=== PATIENT | female | born 1965 | race Caucasian/White ===

== ENCOUNTER → 2018-03-13 10:37 | Outpatient (CLI) | payer OTHER, SELFPAY | PROVIDERS: Family Provider Nurse Practitioner; PCP Nurse Practitioner; Visit Provider Obstetrics & Gynecology | DX: Z12.31 Encounter for screening mammogram for malignant neoplasm of breast (principal) | CPT/HCPCS: 77063; 77067 ==

== ENCOUNTER → 2018-03-20 09:10 | Outpatient (CLI) | payer OTHER, SELFPAY ==
[2018-03-20 10:32] LABS: Hemoglobin A1c 5.3 % (4.2-6.3)
[2018-03-20 10:42] LABS: Progesterone Level 0.13 ng/mL (See Comment)
[2018-03-20 10:44] LABS: Estradiol 20.7 pg/mL; Free T3 3.2 pg/mL (2.18-3.98); T4 Free Direct 0.94 ng/dL (0.76-1.46); Thyroid Stim Hormone (TSH) 4.32 uIU/mL (0.358-3.74)
[2018-03-22 07:57] LABS: DHEA Sulfate 117.5 ug/dL (41.2-243.7)
== END ==
PROVIDERS: Family Provider Nurse Practitioner; PCP Nurse Practitioner; Visit Provider Obstetrics & Gynecology
DX: Z78.0 Asymptomatic menopausal state (principal)
CPT/HCPCS: 36415; 82533; 82627; 82670; 83036; 84144; 84403; 84439; 84443; 84481; 82626

== ENCOUNTER → 2018-05-13 16:48 | Outpatient (CLI) | payer OTHER, SELFPAY ==
[2018-05-13 18:31] LABS: Estradiol 15.9 pg/mL
[2018-05-13 18:39] LABS: Progesterone Level 0.56 ng/mL (See Comment)
[2018-05-21 14:08] LABS: HPV Reflexed? NOT INDICATED
== END ==
PROVIDERS: Visit Provider Obstetrics & Gynecology
DX: Z12.4 Encounter for screening for malignant neoplasm of cervix (principal); N95.1 Menopausal and female climacteric states
CPT/HCPCS: 36415; 82670; 84144; 88175; G0145

== ENCOUNTER → 2018-08-21 08:58 | Outpatient (CLI) | payer OTHER, SELFPAY ==
[2018-08-21 11:49] LABS: Estradiol 18.6 pg/mL
[2018-08-21 11:54] LABS: Progesterone Level 0.65 ng/mL (See Comment)
--- OUTSIDE RECORDS SUMMARY | 2018-10-25 15:59 | XMS RPT_ITS ---
:1965 Author Organization OHIP Care Team Providers Name Role Phone Belkys Monaco Attending Unavailable Belkys Monaco Attending Unavailable [facility] Morgantona, Shayla Primary Care Unavailable Belkys Monaco Attending Unavailable Belkys Monaco Referring Unavailable esa, Shalya Primary Care Unavailable Belkys Monaco Attending Unavailable Arthur, Dr. Lisandra Moncada Attending Unavailable Pipo, Dr. Ford Zuñiga Referring Unavailable FREE, TEXT ENTRY Primary Care Unavailable Arthur, Dr. Lisandra Moncada Attending Unavailable Arthur, Dr. Lisandra Moncada Attending Unavailable Arthur, Dr. Lisandra Moncada Attending Unavailable Arthur, Dr. Lisandra Moncada Attending Unavailable Dr. Ford Foss Referring Unavailable Arthur, Dr. Lisandra Moncada Attending Unavailable Leoa, Lillian Referring Unavailable PROBLEMS PROBLEMS DATE TYPE CONDITION / CODE ATTENDING STATUS SOURCE 08/21/2018 Unknown N93.8 - Other Belkys Monaco specified Community abnormal uterine Hospital and vaginal Repository bleeding / N93.8(ICD-10) 08/21/2018 Unknown N95.1 - Belkys Monaco Menopausal and Counts Include [address] [facility] female Hospital climacteric Repository states / N95.1(ICD-10) 05/13/2018 Unknown Z12.4 - Encounter Belkys Monaco for screening for Counts Include [address] [facility] malignant Hospital neoplasm of Repository cervix / Z12.4(ICD-10) 04/02/2018 Final diagnosis Encntr for Dr. Bhargavi Gibson (discharge) general adult [facility] medical exam w/o [facility] abnormal findings / Z00.00(ICD-10) 04/02/2018 Final diagnosis Dysphonia / Dr. Bhargavi Gibson (discharge) R49.0(ICD-10) [facility] Rep[facility] 04/02/2018 Final diagnosis Paralysis of Dr. Bhargavi Gibson (discharge) vocal cords and [facility] larynx, [place] Repository unspecified / J38.00(ICD-10) PROCEDURES PROCEDURES No Procedure Records FoundRESULTS RESULTS ESTRADIOL Collected: 08/21/2018 Status: F Source: WADE 9:00 AM [facility] REPOSITORY TYPE CODE TESTS RESULT OUT OF RANGE REFERENCE UNITS LAB L3300.1750 pg/mL Normal ESTRADIOL 18.6 Result Comment: NORMAL REFERENCE RANGES FEMALE FOLLICULAR 21.4 - 164.8 pg/mL MID-CYCLE PEAK 49.9 - 367.2 pg/mL LUTEAL 40.2 - 259.0 pg/mL POST-MENOPAUSAL ON MHT <11.0 - 462.1 pg/mL NOT ON MHT <11.0 - 58.3 pg/mL MALE <11.0 - 52.5 pg/mL NOTE: [facility] HAS CONFIRMED THE DRUG FULVETRANT (FASLODEX) MAY CAUSE FALSELY ELEVATED ESTRADIOL RESULTS WHEN USING THIS TEST METHOD. IF PATIENT IS TAKING FULVESTRANT AN ALTERNATIVE METHOD SHOULD BE USED TO DETERMINE ESTRADIOL CONCENTRATION. Performed By: #### L3300.1750 #### [facility] [address] [place], [address] PROGESTERONE LEVEL Collected: 08/21/2018 Status: F Source: WADE 9:00 AM [facility] REPOSITORY TYPE CODE TESTS RESULT OUT OF REFERENCE UNITS RANGE LAB L509.4001 See Comment ng/mL Progesterone Normal 0.65 Result Comment: Progesterone Reference Table: UNITS Female: Follicular 0.15 - 1.40 ng/mL Luteal 3.34 - 25.56 ng/mL Mid-luteal 4.44 - 28.03 ng/mL Postmenopausal 0.0 - 0.73 ng/mL : 1st Trimester 11.22 - 90.00 ng/mL 2nd Trimester 25.55 - 89.40 ng/mL 3rd Trimester 48.40 -422.50 ng/mL Performed By: #### L509.4001 #### [facility] [address] 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 Has had 3 sessions of speech therapy without improvement. Interval History 05/26/2018. Notes that her symptoms are the same today and she is interested in proceeding with left vocal cord injection. PMH: Hypothyroidism (on Synthroid) No swallowing, breathing, laryngospasm, fever, chills, nausea or vomiting. ROS performed. All other systems are reviewed and are negative for complaint except as noted in HPI. 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) Allergies No Known Drug Allergies Recorded By: Mellissa Hathaway; 04/02/2018 4:47:09 PM Current Meds Progesterone 40 % Cream; Therapy: [id number] to Recorded Dispense: 0 Days ; #: Sufficient GM; Refill: 0; PHILLY = N; Record; Last Updated By: Mellissa Hathaway; 04/02/2018 4:47:09 PM Synthroid 25 MCG Oral Tablet; Therapy: [id number] to Recorded Dispense: 0 Days ; #: Sufficient Tablet; Refill: 0; PHILLY = N; Record; Last Updated By: Mellissa Hathaway; 04/02/2018 4:47:09 PM Physical Exam Procedure Procedure: Direct endoscopic vocal cord injection (CPT 55765), unilateral left Diagnosis: Left vocal cord paresis Injection material: Restylane After informed consent, a time out, and appropriate topical Afrin and lidocaine spray to the nares and throat, the channeled endoscope was advanced. The topical lidocaine gargle is applied to the vocal cords. A 25g needle was advanced via the thyrohyoid space an angled to the affected vocal fold. The injection was placed lateral to the vocal ligament and was completed with the following details: .5cc Patient tolerated the procedure well. Post procedure instructions for 24 hours of voice rest, avoidance of cough and clear were discussed. 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 Treatment options had been discussed at her prior visit and decision was made t o proceed with left vocal cord injection with Restylane which was performed today. Patient will call me in 2 weeks with an update. Patient Discussion/Summary Avoid voice usage, throat clearing and cough for 24 hours You may cough up small bits of blood for 24 hours - this is normal. If you cough up clots, or the bleeding does not stop, call our office or [phone] and ask to speak to the ENT resident systems integration analyst. Call me in 2 weeks with an update If your symptoms change, or if you have any further questions or concerns, please call the office so we can see you. For general questions or scheduling issues, call our alumni secretary at [phone] For medical questions or surgery scheduling issues, call [phone] To reach Speech therapy, for appointments or questions, call [phone]. By signing my name below, I, Maru Olivares, attest that this documentation has been prepared under the direction and in the presence of Dr. Gibson. All medical record entries made by the Maru were at my direction and personally dictated by me. I have reviewed the chart and agree that the record accurately reflects my personal performance of the h istory, physical exam, discussion and plan. Attending Note Attendee Role: Resident Attendee discussed patient with Dr. Gibson Attestation: I saw and evaluated the patient. I personally obtained the pizano and critical portions of the history and physical exam or was physically present for pizano and critical portions performed by e attendee. I reviewed the attendee's documentation and discussed the patient with the attendee. I agree with the attendee's medical decision making as documented on the attendee's note. 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 left vocal cord paresis with 3 sessions of speech therapy. PMH: Recently diagnosed Hypothyroidism, currently on Synthroid Interval History 04/02/2018: Speaking voice has been fine. Had three sessions of speech therapy - doesnt feel it helped very much. still with pitch breaks on transitions. Very concerned about how to regain singing through her trans ition, the breaks and the lack of response to speech therapy. No other medical changes. No swallowing, breathing, laryngospasm, fever, chills, nausea or vomiting. ROS performed. All other systems are reviewed and are negative for complaint except as noted in HPI. I personally reviewed the new patient intake form and prior chart notes and this was scanned into the electronic medical record today, 05/26/2018. 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) Allergies No Known Drug Allergies Recorded By: Mellissa Hathaway; 04/02/2018 4:47:09 PM Current Meds Omeprazole 40 MG Oral Capsule Delayed Release; Therapy: [id number] to Recorded Dispense: 0 Days ; #: Sufficient Capsule Delayed Release; Refill: 0; PHILLY = N; Record; Last Updated By: Mellissa Hathaway; 04/02/2018 4:47:09 PM Progesterone 40 % Cream; Therapy: [id number] to Recorded Dispense: 0 Days ; #: Sufficient GM; Refill: 0; PHILLY = N; Record; Last Updated By: Mellissa Hathaway; 04/02/2018 4:47:09 PM Synthroid 25 MCG Oral Tablet; Therapy: 02Apr2018 to Recorded Dispense: 0 Days ; #: Sufficient Tablet; Refill: 0; PHILLY = N; Record; Last Updated By: Mellissa Hathaway; 04/02/2018 4:47:09 PM Vitals Vital Signs Recorded: 26May2018 07:17AM Height5 ft 6 in Wxhcjc807 lb BMI Fahjugrbgu48.41 BSA Calculated1.89 Physical Exam CONSTITUTIONAL: well developed, well nourished. VOICE: normal RESPIRATION: Breathing comfortably, no stridor. CV: No clubbing/cyanosis/edema in hands. EYES: EOM Intact, sclera normal. NEURO: Alert and oriented times 3, Cranial nerves II-XII intact and symmetric bilaterally. HEAD AND FACE: Symmetric facial features, no masses or lesions, sinuses nontender to palpation. SKIN: Neck skin is without scar or injury PSYCH: Alert and oriented with appropriate mood and affect Procedure Recommended flexible laryngoscopy with stroboscopy based on FOL findings, and/or concern for mucosal wave details. Risks, benefits, and alternatives were explained. The patient wishes to proceed and gives verbal consent. PROCEDURE NOTE: Recommended flexible laryngoscopy with stroboscopy based on FOL findings, and/or concern for mucosal wave details. Risks, benefits, and alternatives were explained. The patient wishes to proceed and gives verbal consent. PROCEDURE: Flexible Laryngoscopy with Stroboscopy (81737) POSTPROCEDURE DIAGNOSIS: hoarseness, subtle left vocal cord paresis INDICATIONS: Inability to tolerate mirror exam or abnormal findings on mirror/FOL , inability to tolerate mirror exam or abnormal findings on mirror, Flexible Laryngoscopy/Stroboscopy performed to assess one of the followin. Diagnosis of symptomatic disorder involving the voice, swallow, upper aerodigestive tract, including GELY disorders, or 2. Preoperative evaluation of vocal cord function for individuals undergoing surgery where the RLN or vagus nerves are at risk of injury, or 3. Further evaluation of abnormalities of the upper aerodigestive tract discovered by another modality, such as CT, MRI, bronchoscopy or EGD ANESTHESIA: 4% lidocaine and 0.5% phenylephrine FOL with need to see mucosal wave details. Stroboscopy was performed based on prior flexible laryngoscopy findings or for issues associated with hyperreflexic gag on mirror exam positive for pathology. After adequate afrin and lidocaine spray, I advanced the endoscope via the nares. Assessment of the nasopharyanx, base of tongue/vallecula, pyriform sinuses, post-cricoid area and pharyngeal barbosa was without lesion or mass. Findings are as noted: vocal cord movement is asymmetric, left falling out greater than right Mild vocal cord weakness improved closure - no further mid cord fullness mucosal wave amplitude is with mild increased on the left periodic/symmetric mucosal wave increased compression pharyngeal wall contraction is normal no pooling of secretions unchanged from prior exam The patient tolerated the procedure well. 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 We discussed possible treatment options focused on augmentation injection . 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 We discussed the use of restylane which is temporary and the benefits of the softer nature of this injectable. Possible neg ative impact on speaking and singing voice were also discussed. I recommend: Patient Discussion/Summary 1. In office restylane injection 2. We discussed the risks, benefits and alternatives of intervention to include but not be limited to, bleeding and infection, damage to surrounding structures as well as scarring. We further discussed the possibility of change in voice with persistent or worsened hoarseness, swallowing difficulty, breathing difficulty, medical complications and risks of anesthesia. 3. Anticipate voice rest for 24-48 hours after the procedure If your symptoms change, or if you have any further questions or concerns, please call the office so we can see you. For general questions or scheduling issues, call our alumni secretary Clair See at [phone] For medical questions or surgery scheduling issues, call [phone] To reach Speech therapy, for appointments or questions, call [phone]. End of Encounter Meds Omeprazole 40 MG Oral Capsule Delayed Release; Therapy: [id number] to Recorded Progesterone 40 % Cream; Therapy: [id number] to Recorded Synthroid 25 MCG Oral Tablet (Levothyroxine Sodium); Therapy: [id number] to Recorded Signatures Electronically signed by : Lisandra Gibson MD; May 29 2018 1:40PM EST (Author) ESTRADIOL Collected: 05/13/2018 Status: F Source: IDEAL 4:50 PM [facility] REPOSITORY TYPE CODE TESTS RESULT OUT OF RANGE REFERENCE UNITS LAB L3300.1750 pg/mL Normal ESTRADIOL 15.9 Result Comment: NORMAL REFERENCE RANGES FEMALE FOLLICULAR 21.4 - 164.8 pg/mL MID-CYCLE PEAK 49.9 - 367.2 pg/mL LUTEAL 40.2 - 259.0 pg/mL POST-MENOPAUSAL ON MHT <11.0 - 462.1 pg/mL NOT ON MHT <11.0 - 58.3 pg/mL MALE <11.0 - 52.5 pg/mL NOTE: [facility] HAS CONFIRMED THE DRUG FULVETRANT (FASLODEX) MAY CAUSE FALSELY ELEVATED ESTRADIOL RESULTS WHEN USING THIS TEST METHOD. IF PATIENT IS TAKING FULVESTRANT AN ALTERNATIVE METHOD SHOULD BE USED TO DETERMINE ESTRADIOL CONCENTRATION. Performed By: #### L3300.1750 #### [facility] [address] [place], [address] PROGESTERONE LEVEL Collected: 05/13/2018 Status: F Source: IDEAL 4:50 PM [facility] REPOSITORY TYPE CODE TESTS RESULT OUT OF REFERENCE UNITS RANGE LAB L509.4001 See Comment ng/mL Progesterone Normal 0.56 Result Comment: Progesterone Reference Table: UNITS Female: Follicular 0.15 - 1.40 ng/mL Luteal 3.34 - 25.56 ng/mL Mid-luteal 4.44 - 28.03 ng/mL Postmenopausal 0.0 - 0.73 ng/mL : 1st Trimester 11.22 - 90.00 ng/mL 2nd Trimester 25.55 - 89.40 ng/mL 3rd Trimester 48.40 -422.50 ng/mL Performed By: #### L509.4001 #### [facility] [place], [address] PAP I-G W/RFX HRHPV Collected: 05/13/2018 Status: F Source: WADE 4:30 PM [facility] REPOSITORY Order Comment: CYTOLOGY INFORMATION: - CLINICAL INFORMATION: - DATE LMP/MENOPAUSE: 2017 LMP - COLLECTION VIAL: Thin Prep Vial - DRAINMAN SOURCE: CERVICAL/ENDOCERVICAL - COLLECTION TECHNIQUE: BRUSH/SPATULA Specimen Comment: Source.............Cervix;Endocervix Specimen Comment: Dates / Results....2016 LMP Specimen Comment: No. of containers..01 ThinPrep Vial Specimen Comment: A duplicate report has been generated due to demographic Specimen Comment: updates. TYPE CODE TESTS RESULT OUT OF RANGE REFERENCE UNITS LAB L7400.0800 . Normal DIAGN Comment Result Comment: NEGATIVE FOR INTRAEPITHELIAL LESION AND MALIGNANCY. LAB L7400.0900 . Normal ADEQ Comment Result Comment: Satisfactory for evaluation. Endocervical and/or squamous metaplastic cells (endocervical component) are present. LAB L7400.1400 . Normal PERFORM Comment Result Comment: Kari Sim, [employer] LAB L7400.2579 . Normal Test not TEST METHOD performed Result Comment: The Thin Prep(R) Manager Consumer was unable to read this specimen. Therefore a manual review was performed. LAB L7400.2600 . Normal . COMM LAB L7400.2700 . Normal PAPSMR Comment Result Comment: The Pap smear is a screening test designed to aid in the detection of premalignant and malignant conditions of the uterine cervix. It is not a diagnostic procedure and should not be used as the sole means of detecting cervical cancer. Both false-positive and false-negative reports do occur. LAB L7400.2800 . Normal HPV RFLX Comment Result Comment: The HPV DNA reflex criteria were not met with this specimen result therefore, no HPV testing was performed. Performed at: [address] [id number] Manager Consumer: Rashmi Loco MD, Phone: [phone] Performed By: #### L7400.0350 #### [facility] (refer to report for specific site) refer to report for address and phone number OFFICE VISIT (SPEECH Observed: 05/13/2018 Status: UNK Source: [facility] 1:57 PM HOSPITALS REPOSITORY FOLLOW UP) Reason for Referral reduced vocal stamina 2/2 unilateral VF paresis Identification Verified By name picture Voice Quality and Characteristics Speaking/Singing G-0/1-2 R-0/0 B-0/0 A-0/0 S-0/1-2 Goals Patient will increase vocal wellness and decrease phonotrauma in adherence with clinician prescribed vocal hygiene and wellness program per patient report. Patient will increase ability to produce singing voice without tension within 5 minute sung task x80% accuracy as judged by clinician observation and/or patient report. Patient will demonstrate independent use of voice/swallow/breathing techniques x80% accuracy. Patient will increase the balance of laryngeal/swallowing musculature. Projected STG completion date: x3 ST sessions conducted x1/eowk Plan Patient was given verbal/visual/written instruction re: SOVT with fade of cup-probed fade of straw, sirens, 4th registration, onsets, chest/head voice transition baseline- D4 today-A#3. Patient able to indep'ly talk back/demo all strategies and exercises provided. Outcomes Patient arrived on time accompanied by herself. Pt transitioned indep'ly to clinic room and was a willing participant in tx. This is visit # 2 Positive response to skilled intervention noted. Training and instruction provided on vocal wellness, healthy voicing. Specifically, vx focused on singing voice use, modification of home programming - o nsets, head/chest transition. Continues to adhere to rest recommendations - occasional modeling during singing voice lessons though reported. Patient is able to perform penta scales with min-mod cues. P atient benefits from [h] initial with fade for onset work resulting in increased stability of chest reg productions. Education provided on HEP, POC. Difficulty continues with occasional pitch breaks, mi ld pitch instability. Overall, patient continues to benefit from skilled intervention in the area of voice. Recommend continued tx in order to improve patients overall vocal emerald in order to foster inc reased participation levels at home, work and in the community environment. 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 Gibson to assess progress in tx. Time Start Time: 13:00 End Time: 13:45 Signatures Electronically signed by : MARLO Kapoor; May 13 2018 1:57PM EST (Author) OFFICE VISIT (SPEECH Observed: 04/24/2018 Status: UNK Source: [facility] 1:29 PM HOSPITALS REPOSITORY FOLLOW UP) Reason for Referral reduced vocal stamina 2/2 unilateral VF paresis Identification Verified By name picture Voice Quality and Characteristics Speaking/Singing G-0/1-2 R-0/0 B-0/0 A-0/0 S-0/1-2 Goals Patient will increase vocal wellness and decrease phonotrauma in adherence with clinician prescribed vocal hygiene and wellness program per patient report. Patient will increase ability to produce singing voice without tension within 5 minute sung task x80% accuracy as judged by clinician observation and/or patient report. Patient will demonstrate independent use of voice/swallow/breathing techniques x80% accuracy. Patient will increase the balance of laryngeal/swallowing musculature. Projected STG completion date: x3 ST sessions conducted x1/eowk Plan Patient was given verbal/visual/written instruction re: SOVT with cup, sirens, 4th registration. Patient able to indep'ly talk back/demo all strategies and exercises provided. Outcomes Patient arrived on time accompanied by herself. Pt transitioned indep'ly to clinic room and was a willing participant in tx. This is visit # 1 Positive response to skilled intervention noted. Training and instruction provided on vocal wellness, healthy voicing. Specifically, vx focused on singing voice use, modification of home programming - a ddition of sirens on neutral vowels, mod of SOVT. At the time of last progress note, patient could not transition voicing between head/chest registration without pitch breaks however; now patient can ap propriately modify her respiratory control to maintain voicing. Patient is able to perform sirens with min cues. Patient benefits from reduced range of SOVT - B4 upper limit. Education provided on HEP, POC. Patient has had no incident of vocal fatigue given rest from modeling during lessons. Personally identified previous high frequency of voice use during lessons. Difficulty continues with occasional pitch breaks, mild pitch instability. Overall, patient continues to benefit from skilled intervention in the area of voice. Recommend continued tx in order to improve patients overall vocal emerald in or chrystal to foster increased participation levels at home, work and in the community environment. 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 Their preferred language is Andorran. Patient, a 52yo F, presents to evaluation in the area of voice with c/o reduced vocal stamina, vocal range when singing. Patient referred by Dr. Gibson. PMHx sig for hypothyroidism Per patient report, onset of problem was 2 years prior to this evaluation. Since onset, issue has gradually increased in severity. 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 Currently, patient is only able to sing for 20 minutes prior to becoming fatigued with hoarseness p resent in her speaking voice. Recovery is 12+ hours. Upper registration is limited to A5 when previously she had been able to access whistle register with no difficulty. Vibrato is also effected with an increase in breathiness in her middle registration. She describes a sensation of swelling in her throat. She has been unable to identify a vehicle of relief for her symptoms. She denies sharp pain or discomfort. 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 Speaking/Singing Voice G-0/1-2 R-0/0 B-0/0 A-0/0 S-0/1-2 Patient's speaking voice is c/b normal vocal patterning. Singing voice is produced with diaphragmatic support, anterior tongue carriage with some posterior pull in upper reg, vertical vowel positioning with some rigidity in upper range. Their respiratory patterning consists of diaphragmatic primary. Stroboscopy revealed vocal cord movement is asymmetric, left falling out greater than right Mild vocal cord weakness subtle hourglass closure of vocal cords with out distinct lesion or mass mucosal wave amplitude is with mild increased on the left periodic/symmetric mucosal wave increased compression pharyngeal wall contraction is normal no pooling of secretions (Dr. Gibson, 04/02/18). Findings indicative of mild VF paresis with mid cord fullness and compensatory MTD. Recommendations Overall, patient would benefit from skilled ST in the area of voice x1/eowk for x6 wks in order to increase healthy voicing to foster increased participation and comfort levels at home, work and in the community environment. Identification Verified By name picture Goals Patient will increase vocal wellness and decrease phonotrauma in adherence with clinician prescribed vocal hygiene and wellness program per patient report. Patient will increase ability to produce singing voice without tension within 5 minute sung task x80% accuracy as judged by clinician observation and/or patient report. Patient will demonstrate independent use of voice/swallow/breathing techniques x80% accuracy. Patient will increase the balance of laryngeal/swallowing musculature. Projected STG completion date: x3 ST sessions conducted x1/eowk Plan Patient was given verbal/visual/written instruction re: SOVT with cup. Patient able to indep'ly talk back/demo all strategies and exercises provided. 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 The patient has had worsening voice hoarseness for the past 4 yrs. 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 She states that she used to be able to sing for 1.5hr, however now after approx 25 min of singing, even with simple warm up , her v oice starts cracking. Furthermore, during the days she is teaching, which involves singing, there are times that by the end of the day her singing voice is completely gone and her regular talking voice is hoarse. The patient expresses that in general she has no voice changes when she talks, only when she sings. She has been seen by ENT (Dr. Ford Foss) at [facility] who performed a scope and saw no abnormalities. However she was recommended to start Omeprazole to combat any reflux component. A thyroid evaluatio n was also recommended and the patient has been found to have hypothyroidism. She was then referred here for more detailed ENT evaluation. The patient denies any difficulty breathing, dysphagia, odynophagia, cough, or weight loss. No fever, chills, nausea or vomiting. She states that initially when he symptoms began, throat clearing helped, but this is no longer the case. PMH: Recently diagnosed Hypothyroidism, currently on Synthroid Social: Tobacco none ETOH: rarely Lives with Spouse FHx: reviewed and non-contributory to current complaint. I personally reviewed the patient intake forms and these were scanned into the electronic medical record today, 04/02/2018 . ROS performed. All other systems are reviewed and are negative for complaint except as noted in HPI. I personally reviewed the new patient intake form and this was scanned into the electronic medical record today ROS performed. All other systems are reviewed and are negative for complaint. Review of Systems Allergies No Known Drug Allergies Recorded By: Mellissa Hathaway; 04/02/2018 4:47:09 PM Current Meds Omeprazole 40 MG Oral Capsule Delayed Release; Therapy: [id number] to Recorded Dispense: 0 Days ; #: Sufficient Capsule Delayed Release; Refill: 0; PHILLY = N; Record; Last Updated By: Mellissa Hathaway; 04/02/2018 4:47:09 PM Progesterone 40 % Cream; Therapy: 34Sqd3554 to Recorded Dispense: 0 Days ; #: Sufficient GM; Refill: 0; PHILLY = N; Record; Last Updated By: Mellissa Hathaway; 04/02/2018 4:47:09 PM Synthroid 25 MCG Oral Tablet; Therapy: 94Ysv1503 to Recorded Dispense: 0 Days ; #: Sufficient Tablet; Refill: 0; PHILLY = N; Record; Last Updated By: Mellissa Hathaway; 04/02/2018 4:47:09 PM Vitals Vital Signs Recorded: 02Apr2018 04:46PM Heart Rate87 Xxmlsweg523 Hovkqptms11 Height5 ft 6 in Ogviko121 lb 1 oz BMI Ddxlhglrgy39.45 BSA Calculated1.87 Physical Exam CONSTITUTIONAL: well developed, well nourished. VOICE: normal RESPIRATION: Breathing comfortably, no stridor. CV: No clubbing/cyanosis/edema in hands. EYES: EOM Intact, sclera normal. NEURO: Alert and oriented times 3, Cranial nerves II-XII intact and symmetric bilaterally. HEAD AND FACE: Symmetric facial features, no masses or lesions, sinuses nontender to palpation. SALIVARY GLANDS: Parotid and submandibular glands normal bilaterally. EARS: Normal external ears, external auditory canals, and TMs to otoscopy, normal hearing to whispered voice. NOSE: External nose midline, anterior rhinoscopy is normal with limited visualization to the anterior aspect of the interior turbinates. No lesions noted. ORAL CAVITY/OROPHARYNX/LIPS: Normal mucous membranes, normal floor of mouth/tongue/OP, no masses or lesions are noted. PHARYNGEAL BARBOSA AND NASOPHARYNX: No masses noted. NECK/LYMPH: No LAD, no thyroid masses. SKIN: Neck skin is without scar or injury PSYCH: Alert and oriented with appropriate mood and affect Procedure Recommended flexible laryngoscopy with stroboscopy based on FOL findings, and/or concern for mucosal wave details. Risks, benefits, and alternatives were explained. The patient wishes to proceed and gives verbal consent. PROCEDURE NOTE: Recommended flexible laryngoscopy with stroboscopy based on FOL findings, and/or concern for mucosal wave details. Risks, benefits, and alternatives were explained. The patient wishes to proceed and gives verbal consent. PROCEDURE: Flexible Laryngoscopy with Stroboscopy (30035) POSTPROCEDURE DIAGNOSIS: hoarseness, subtle left vocal cord paresis INDICATIONS: Inability to tolerate mirror exam or abnormal findings on mirror/FOL , inability to tolerate mirror exam or abnormal findings on mirror, Flexible Laryngoscopy/Stroboscopy performed to assess one of the followin. Diagnosis of symptomatic disorder involving the voice, swallow, upper aerodigestive tract, including GELY disorders, or 2. Preoperative evaluation of vocal cord function for individuals undergoing surgery where the RLN or vagus nerves are at risk of injury, or 3. Further evaluation of abnormalities of the upper aerodigestive tract discovered by another modality, such as CT, MRI, bronchoscopy or EGD ANESTHESIA: 4% lidocaine and 0.5% phenylephrine FOL with need to see mucosal wave details. Stroboscopy was performed based on prior flexible laryngoscopy findings or for issues associated with hyperreflexic gag on mirror exam positive for pathology. After adequate afrin and lidocaine spray, I advanced the endoscope via the nares. Assessment of the nasopharyanx, base of tongue/vallecula, pyriform sinuses, post-cricoid area and pharyngeal barbosa was without lesion or mass. Findings are as noted: vocal cord movement is asymmetric, left falling out greater than right Mild vocal cord weakness subtle hourglass closure of vocal cords with out distinct lesion or mass mucosal wave amplitude is with mild increased on the left periodic/symmetric mucosal wave increased compression pharyngeal wall contraction is normal no pooling of secretions The patient tolerated the procedure well. 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 This is impacting her singing voice greater than her speaking voice. We discussed possible treatment options including speech therapy and augmentation injection. I recommend: Voice rest - we discussed making some videos for students vs demonstrating. Voice-specific speech therapy If no improvement, will consider injection with Restylane Patient Discussion/Summary You need speech therapy as part of your treatment. We will help you to schedule your speech appointment, after your visit or you can call speech therapy scheduling at [phone]. Please follow up pend ing the outcome of speech therapy. If your symptoms change, or if you have any further questions or concerns, please call the office so we can see you. For general questions or scheduling issues, call our alumni secretary Clair See at [phone] For medical questions or surgery scheduling issues, call [phone] To reach Speech therapy, for appointments or questions, call [phone]. End of Encounter Meds Omeprazole 40 MG Oral Capsule Delayed Release; Therapy: 22Aqj5134 to Recorded Progesterone 40 % Cream; Therapy: 82Owt5426 to Recorded Synthroid 25 MCG Oral Tablet (Levothyroxine Sodium); Therapy: 94Czt4663 to Recorded Signatures Electronically signed by : Lisandra Gibson MD; Apr 05 2018 11:13AM EST (Author) HEMOGLOBIN A1C Collected: 03/20/2018 Status: F Source: WADE 9:14 AM [facility] REPOSITORY TYPE CODE TESTS RESULT OUT OF RANGE REFERENCE UNITS LAB L501.9985 4.2-6.3 % Normal HGB A1C 5.3 Performed By: #### L501.9985 #### [facility] [address] [place], [address] TESTOSTERONE, SERUM TOTAL Collected: 03/20/2018 Status: F Source: IDEAL 9:14 AM [facility] REPOSITORY TYPE CODE TESTS RESULT OUT OF REFERENCE UNITS RANGE LAB L509.3000 ng/dL Testosterone Normal 20.00 Result Comment: NORMAL REFERENCE RANGES MALE AGE <50 123.06 - 813.86 ng/dL MALE AGE >50 89.98 - 780.10 ng/dL FEMALE PREMENOPAUSE AGE 21 - 60 9.01 - 47.94 ng/dL FEMALE POSTMENOPAUSE AGE 45 - 89 <7.00 - 45.62 ng/dL REFERENCE RANGE AND METHODOLOGY CHANGED 07/23/2017 Performed By: #### L509.3000, L509.4001, L509.6000 #### [facility] [address] [place], [address] PROGESTERONE LEVEL Collected: 03/20/2018 Status: F Source: IDEAL 9:14 AM [facility] REPOSITORY TYPE CODE TESTS RESULT OUT OF REFERENCE UNITS RANGE LAB L509.4001 See Comment ng/mL Progesterone Normal 0.13 Result Comment: Progesterone Reference Table: UNITS Female: Follicular 0.15 - 1.40 ng/mL Luteal 3.34 - 25.56 ng/mL Mid-luteal 4.44 - 28.03 ng/mL Postmenopausal 0.0 - 0.73 ng/mL : 1st Trimester 11.22 - 90.00 ng/mL 2nd Trimester 25.55 - 89.40 ng/mL 3rd Trimester 48.40 -422.50 ng/mL Performed By: #### L509.3000, L509.4001, L509.6000 #### [facility] [address] [place], [place], [address] CORTISOL SERUM Collected: 03/20/2018 Status: F Source: IDEAL 9:14 AM [facility] REPOSITORY TYPE CODE TESTS RESULT OUT OF RANGE REFERENCE UNITS LAB L509.6000 3.09-22.40 ug/dL Normal CORTISOL 8.20 Result Comment: Adult (AM) 4.30 - 22.40 ug/dL Adult (PM) 3.09 - 16.66 ug/dL Performed By: #### L509.3000, L509.4001, L509.6000 #### [facility] [address] [place], [address] FREE T3 Collected: 03/20/2018 Status: F Source: IDEAL 9:14 AM [facility] REPOSITORY TYPE CODE TESTS RESULT OUT OF RANGE REFERENCE UNITS LAB L501.62082 2.18-3.98 pg/mL Normal FREE T3 3.2 Performed By: #### L501.18438, L501.9520, L506.0400, L3300.1750 #### [facility] [address] [place], [address] THYROID STIM HORMONE Collected: 03/20/2018 Status: F Source: WADE (TSH) 9:14 AM [facility] REPOSITORY TYPE CODE TESTS RESULT OUT OF RANGE REFERENCE UNITS LAB L501.9520 0.358-3.74 uIU/mL High TSH 4.32 Performed By: #### L501.53316, L501.9520, L506.0400, L3300.1750 #### [facility] [address] [place], [address] T4 FREE DIRECT Collected: 03/20/2018 Status: F Source: IDEAL 9:14 AM [facility] REPOSITORY TYPE CODE TESTS RESULT OUT OF RANGE REFERENCE UNITS LAB L506.0400 0.76-1.46 ng/dL Normal T4 FREE 0.94 DIRECT Performed By: #### L501.80281, L501.9520, L506.0400, L3300.1750 #### [facility] [address] [place], [address] ESTRADIOL Collected: 03/20/2018 Status: F Source: WADE 9:14 AM [facility] REPOSITORY TYPE CODE TESTS RESULT OUT OF RANGE REFERENCE UNITS LAB L3300.1750 pg/mL Normal ESTRADIOL 20.7 Result Comment: NORMAL REFERENCE RANGES FEMALE FOLLICULAR 21.4 - 164.8 pg/mL MID-CYCLE PEAK 49.9 - 367.2 pg/mL LUTEAL 40.2 - 259.0 pg/mL POST-MENOPAUSAL ON MHT <11.0 - 462.1 pg/mL NOT ON MHT <11.0 - 58.3 pg/mL MALE <11.0 - 52.5 pg/mL NOTE: [facility] HAS CONFIRMED THE DRUG FULVETRANT (FASLODEX) MAY CAUSE FALSELY ELEVATED ESTRADIOL RESULTS WHEN USING THIS TEST METHOD. IF PATIENT IS TAKING FULVESTRANT AN ALTERNATIVE METHOD SHOULD BE USED TO DETERMINE ESTRADIOL CONCENTRATION. Performed By: #### L501.94377, L501.9520, L506.0400, L3300.1750 #### [facility] [address] [place] [address]. [place], [place], [address] DHEA SULFATE Collected: 03/20/2018 Status: F Source: IDEAL 9:14 AM [facility] REPOSITORY Order Comment: Has Patient had Radioactive Injection for X-ray?: N TYPE CODE TESTS RESULT OUT OF RANGE REFERENCE UNITS LAB L3300.1500 41.2-243.7 ug/dL Normal DHEA SULF 117.5 4020 Result Comment: Performed at: - [facility] [address] [id number] Manager Consumer: Jose Beckett PhD, Phone: [phone] Performed By: #### L3300.1500 #### [facility] (refer to report for specific site) refer to report for address and phone number SCREENING MAMM (CAD), Observed: 03/13/2018 Status: F Source: WADE BILAT 10:40 AM [facility] REPOSITORY [facility] Services [address] [place] [address] SCREENING MAMM (CAD), BILAT MR#: [id number] Acct: [id number] Name: JUNIE JOSUE Rep #: [id number] : 1965 F 52 From: Basim Manzano MD PCP: Shayla Jenkins NP Status: REG CLI Study: SCREENING MAMM (CAD), BILAT Date of Exam: 03/13/18 Exam# [id number] Ordering Dr: Belkys Monaco MD MAMMOGRAPHY - BILATERAL SCREENING 3-D DON SYNTHESIS REASON FOR EXAM: Female, 52 years old. Bilateral Screening 3-D tomosynthesis PERTINENT HISTORY: No significant family history. TECHNIQUE: 2-D mammograms and 3-D Don synthesis of the breast (s) were performed. CAD was performed. COMPARISON: August 20, 2016, October 22, 2013 FINDINGS: The breast composition is composed of scattered fibroglandular density. Scattered benign calcifications and normal-appearing lymph nodes are seen. No dense spiculated masses or suspicious microcalcifications are identified. No architectural distortion is identified. There is no skin thickening or retraction. There has been no significant change since the prior study. BI/SCREENING MAMM (CAD), BILAT IMPRESSION: No mammographic signs of malignancy. Routine yearly mammograms recommended. ASSESSMENT CATEGORY: BIRADS Category 2: Benign. A letter regarding these results will be sent to the patient by the facility within 30 days. FOLLOW UP RECOMMENDATION: Yearly follow up mammogram recommended. (A) Approximately 10% of breast cancers are not detected by mammography. A normal mammogram should not delay biopsy of a clinically suspicious abnormality. Electronically Signed: Basim Manzano MD at 18:48 EDT , Service support , CC: Shayla Jenkins NP; Belkys Monaco MD Contact Lens Manufacturer: Signed ALLERGIES ALLERGIES DATE TYPE / CODE NAME / CODE REACTION SEVERITY SOURCE 02/13/2015 Drug Penicillins/ Shortness of Unknown [facility] Allergy/4160 [id number]([facility] 44227(SNOMED XNORM) Repository CT) ENCOUNTERS ENCOUNTERS ADMIT/DISCHARGE ACCOUNT ADMITTING ENCOUNTER LOCATION SOURCE NUMBER CLASS 08/21/2018 [id number] [facility] ing:WOBLAB Repository 06/08/[id number] Repository 05/26/[id number] Repository 05/13/2018 [id number] [facility] ing:WOBLAB Repository 05/13/2018 [id number] Ambulatory [facility] Repository 04/24/2018 [id number] Ambulatory [facility] Repository 04/10/2018 [id number] Ambulatory [facility] Repository 04/02/2018 [id number] Ambulatory [facility] Repository 03/20/2018 [id number] [facility] ing:LAB Repository 03/13/2018 [id number] [facility] ing:OPBI Repository PAYERS PAYERS ENCOUNTER GUARANTOR PAYER SUBSCRIBER SOURCE 08/21/2018 JUNIE Thornton Primary DAIJA Olvera [id number] Insurance:MEDICAL LEEDOB: [facility] [id number]: Repository [id number]: (319) [id number] [phone] (HP) Date:3681-35-73OF [address] [place] [phone]: 08/21/2018 [facility]SELF [facility] Number: Effective Repository Date:2018-08-21 06/08/2018 JUNIE Thornton Primary [facility]Medical [id number] Hospitals [address] Repository MIR Number: [place] [id number] [id number]: [phone]) Date:8704-30-68Rsvi [phone] () Name:[facility] 05/26/2018 JUNIE A Primary DAIJA GARCIAB[facility] Insurance:Medical [id number] Hospitals [address] Repository MIR Number: [place] [phone]: [phone]) Date:0715-53-15Fuus [phone] () Name:Health 05/13/2018 JUNIE Thornton Primary DAIJA Olvera [id number] Insurance:MEDICAL LEEDOB: [facility] [id number] [place] Number: Repository [id number]: (516) [id number] [phone] (HP) Date:3832-45-67SE [address] [address]RH: 05/13/2018 Secondary NOT GIVENUNK Wade Insurance:SELF PAY [facility] Number: Effective Repository Date:2018-05-13 05/13/2018 JUNIE Thornton [facility] [id number] Hospitals [address] Repository MIR Number: [place] [id number] [id number]: [phone]) Date:7021-02-29Wsll [phone] () Name:[facility] 04/24/2018 JUNIE Thornton Primary [facility] [id number] Hospitals [address] Repository MIR Number: [place] [id number] [phone]: [phone]) Date:2479-11-94Xhzz [phone] () Name:[facility] 04/10/2018 JUNIE Thornton Primary [facility] [id number] Hospitals [address] Repository MIR Number: [place] [id number] [id number] [phone]: [phone]) Date:4957-52-81Hodc [phone] (HP) Name:[facility] 04/02/2018 JUNIE Thornton Primary [facility]A [facility]OB[facility] [id number] Hospitals [address] Repository MIR Number: [place] [id number] [id number] [phone]: ([phone]) Date:7950-13-80Mdzm [phone] (HP) Name:Health 03/20/2018 JUNIE Thornton Primary DAIJA Olvera [id number] Insurance:MEDICAL LEEDOB: [facility] [id number] Number: Repository [id number]: [phone]) [id number] [phone] () Date:9595-79-69AR [address] [place] [phone]: 03/20/2018 Secondary NOT GIVENUNK [place] Insurance:SELF PAY [facility] Number: Effective Repository Date:2018-03-20 03/13/2018 Junie Primary DAIJA Olvera [id number] Insurance:MEDICAL LEEDOB: [place] [address]-01-29[place] Number: Repository [id number]: [phone]) [id number] [phone] () Date:9445-31-13FW [address] [place] [id number]: 03/13/2018 Secondary NOT GIVENUNK [place] Insurance:SELF PAY [facility] Number: Effective Repository Date:2018-02-23
== END ==
PROVIDERS: Visit Provider Obstetrics & Gynecology
DX: N93.8 Other specified abnormal uterine and vaginal bleeding (principal); N95.1 Menopausal and female climacteric states
CPT/HCPCS: 36415; 82670; 84144

== ENCOUNTER 2018-12-16 06:10 | Observation (INO) | payer OTHER, SELFPAY ==
[2018-12-16] VITALS (10 sets, daily range): BP systolic 114–174; BP diastolic 63–92; PULSE 62–90; RESP 16–24; TEMP 36.3–36.8; O2SAT 95–98; BMI 29.9; BMI 29.3; BMI 29.4
--- NOTE | 2018-12-16 | CALC_PTH ---
PATIENT: JUNIE STACK LOC: MS3 U#:[id number] AGE/SX: 53/F ROOM: MS311 RE12/16/[address]: Dr. Jason Barboza MD : 1965 BED: 1 DIS: 12/16/2018 SPEC #: [id number] RECD: 12/16/18 15:38 STATUS: SONNY HENRIQUEZCody #: [id number] NITIN: 12/16/18 00:[address]: Jason Barboza DEPT: SURGICAL PATHOLOGY RECD BY: Harvey Whatley ENTERED: 12/17/18 08:03 SP TYPE: Calculi OTHR DR: Shayla Jenkins, BAG GRADER-C Tissues: CALCULI Procedures: Surgery Specimen Level I HEADER OPERATION: Cysto, balloon dilation, ureteroscopy, stone extraction PRE-OP DIAGNOSIS: Right ureteral calculus TISSUE SUBMITTED: Right ureteral calculus GROSS DIAGNOSIS Right ureteral calculus, removal: Unremarkable calculus (gross diagnosis only). AM:maki 12/18/18 COMMENT The calculus is submitted in its entirety for chemical stone analysis. The results from this study will be reported separately. GROSS DESCRIPTION Received in fixative is one container labeled with the patient's name and designated right ureteral calculus. The specimen consists of a single eckert calculus measuring 0.3 x 0.2 x 0.2 cm. / AM:maki 12/17/18 CPT: 15999
--- NOTE | 2018-12-16 06:27 | CT_ITS ---
STUDY: CT ABDOMEN AND PELVIS WITHOUT CONTRAST REASON FOR EXAM: Female, 53 years old. Right flank pain RADIATION DOSAGE (If Supplied By Facility): CTDIvol = ( 10.32 ) mGy, DLP = ( 525.76 ) mGycm TECHNIQUE: Transaxial images were obtained from the dome of the diaphragm to the symphysis pubis without oral contrast, and without intravenous contrast. Sagittal and coronal images were reconstructed. Individualized dose optimization techniques were used for this CT. COMPARISON: None. FINDINGS: The visualized lung bases are unremarkable. The visualized portions of the heart are within normal limits. Normal liver. Normal gallbladder and extrahepatic biliary system. Normal spleen. Normal pancreas. Normal bilateral adrenal glands. Mild right hydronephrosis. Mild right hydroureter. There is still at the right UVJ measuring 5.4 mm. Left lower pole nonobstructing stone measuring 4.6 mm. Remainder of the left kidney is within normal limits. Normal visualized stomach. Normal small intestine. Normal colon. The appendix is visualized and appears normal. Normal abdominal aorta. Normal inferior vena cava. Normal retroperitoneum. Normal urinary bladder. Normal visualized uterus. Normal abdominal wall. Normal osseous structures. CT/Abdomen/Pelvis without Cont IMPRESSION: Mild right hydronephrosis and right hydroureter; stone at the right UVJ as detailed above. Electronically Signed: Khanh Cosme DO at 7:15 EDT Tel , Service support ,
[2018-12-16] MEDS: Ketorolac 30 MG/ML Syringe IV (06:28)
[2018-12-16] MEDS: Ondansetron 4 MG/2 ML Vial IV ×2 (06:28→10:48)
[2018-12-16] MEDS: Morphine 4 MG/ML Syringe IV ×2 (06:29→07:22)
[2018-12-16] MEDS: 0.9% Normal Saline 1,000 ML 999 ML IV (06:32)
[2018-12-16 06:55] LABS: Absolute Lymphocyte Count 4.06 X10^3/ul (0.83-4.51); Absolute Neutrophil Count 3.6 X10^3/uL (2.0-7.7); Basophil# 0.03 X10^3/uL; Basophil% 0.3 % (0-1); Eosinophil# 0.62 X10^3/uL; Hematocrit 39.6 % (37-47); Lymphocyte # 4.06 X10^3/ul (4.0); Lymphocyte % 45.8 % (19-41); Mean Corp Hgb Conc 32.8 g/gl (32-36); Mean Corpuscular Hgb 29.7 pg (27.0-32.0); Mean Corpuscular Volume 90.4 fL (81-99); Mean Platelet Vol. 12.2 fl (6.2-12.0); Monocyte# 0.52 X10^3/uL; Monocyte% 5.9 % (0-10); Neutrophil # 3.62 X10^3/uL (2.7-7.7); Neutrophil % 40.8 % (47-70); Platelet Count 246 K/mm3 (150-450); Red Blood Count 4.38 M/mm3 (4.2-5.4); White Blood Count 8.9 K/mm3 (4.4-11.0)
[2018-12-16 06:58] LABS: Anion Gap 5 (5-15); BUN 11 mg/dL (7-18); BUN/Creat Ratio 13.1 RATIO (10-20); Calcium,Total 8.9 mg/dL (8.5-10.1); Chloride 109 mmol/L (98-107); Creatinine, Serum 0.84 mg/dL (0.55-1.02); EST Glomerular Filtration Rate 75 mL/min (>60); Est Glom Filt Rate - Afr Amer 91 mL/min (>60); Estimated Creatinine Clearance 72.51 ml/min; Glucose 109 mg/dL (74-106); POSITIVE COUNT NO; POSITIVE DIFFERENTIAL NO; POSITIVE MORPHOLOGY NO; Potassium 3.8 mmol/L (3.5-5.1); Sodium Level 142 mmol/L (136-145)
--- NOTE | 2018-12-16 07:25 | ED.VISSUMM ---
- ER Visit Summary Date of Service: 12/16/18 Chief Complaint: Flank pain History of Present Illness: The patient is a 53 F who presents with right flank pain that began suddenly about 2 hours ago. It is beginning to radiate around into the lower abdomen. Her pain is severe. She reports urinary urgency but no dysuria. She denies nausea vomiting diarrhea or fevers. Physical Examination: Afebrile vitals unremarkable Patient does appear to be in pain standing at the edge of the bed shifting position Heart regular rate and rhythm Lungs clear Abdomen soft nontender nondistended Alert Test Results: CBC BMP unremarkable. CT the flank does show mild right hydronephrosis secondary to a right 5.4 mm UVJ calculus. Emergency Department Course and Treatment: Patient was given IV fluids Toradol morphine and Zofran. She had transient improvement of symptoms by her pain quickly returned. She was given a second dose of IV morphine. She again began to complain of severe pain. We will try oxycodone as an oral agent may last longer. Patient discussed with Dr. Barboza through the OR nurse and he agrees to admit. Treatment Plan: [] Disposition: Admit Impression: Ureterolithiasis This note was generated with [employer] dictation software. It may contain incorrect words, spelling, and punctuation that were not noted in review of the chart prior to signing ED Disposition - Plan for ED Patient: Referrals: Shayla Jenkins, ELIZABETH-C [Primary Care Provider] -
--- NOTE | 2018-12-16 07:59 | NURSING ---
MED SURG SOFYA URETEROLITHIASIS
[2018-12-16] MEDS: oxyCODONE 5 MG Tablet PO (08:00)
[2018-12-16 09:34] LABS: Bacteria 0 SEEN /hpf (None Seen)
[2018-12-16 09:53] LABS: Color, Urine Yellow (Yellow); Glucose, Dipstick Normal (Normal); Ketone-Dipstick Negative (Negative); Leukocyte Esterase-Dipstick 25 /ul (Negative); Nitrite-Dipstick Negative (Negative); Occult Blood-Urine 150 /ul (Negative); Protein-Dipstick 15 mg/dl (Negative); Specific Gravity, Urine 1.025 (1.002-1.030); Urine Bilirubin Dipstick Negative (Negative); Urine Clarity Sl. Cloudy (Clear); Urine Urobilinogen Normal (Normal)
[2018-12-16 10:00] LABS: Mucous, Urine 1+ /hpf (<or=2+); Red Blood Cells-Urine 10-25 SEEN /hpf (0-5); Squamous Epithelial Cells - UA 0-5 SEEN /hpf (5-10); White Blood Cells 0-5 SEEN /hpf (0-5)
[2018-12-16 10:02] LABS: Calcium Oxalate Crystals Ur 2+ /hpf (<or=2+)
[2018-12-16] MEDS: 0.9% Normal Saline 1,000 ML 75 ML IV ×2 (10:09→16:05)
[2018-12-16] MEDS: Morphine 2 MG/ML Syringe IV (10:48)
[2018-12-16] MEDS: Ketorolac 15 MG/ML Vial IV (12:13)
--- NOTE | 2018-12-16 14:27 | PCM.HP.STD ---
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 Denies: Nausea, Vomiting Genitourinary: Denies: Dysuria Musculoskeletal: Denies: Joint Pain, Joint Tenderness Skin: Denies: Rash, Wounds Neurological: Denies: Numbness, Tingling, Focal weakness Psychiatric: Denies: Anxiety, Depression, Homicidal Ideations, Suicidal Ideations Hematologic/ Lymphatic: Denies: Easy Bruising, Easy Bleeding VTE Information - Inpt Only VTE Present on Admission: No VTE Mechan Device Prophylaxis: SCD's - Physical Exam General: Alert, Oriented x3, Cooperative HEENT: Atraumatic, PERRLA, EOMI, Normocephalic Neck: Supple, No JVD, Negative Carotid Bruits Lungs: Clear to auscultation, Normal air movement Cardiovascular: Regular rate, No murmurs Abdomen: Bowel Sounds Present, Soft, Non Tender Extremities: No edema, Capillary Refill Less than 3 Seconds Skin: No rashes, No breakdown Musculoskeletal: No Tenderness to Palpation of Joints or Extremities Neurological: Cranial nerves II-XII grossly intact Psych/Mental Status: Normal Affect, Appropriate Vital Signs Temp Pulse Resp BP Pulse Ox 97.7 F L 70 18 128/77 H 96 12/16/18 08:36 12/16/18 08:59 12/16/18 08:36 12/16/18 08:36 12/16/18 08:36 Oxygen Delivery Method Room Air Weight: 82.5 kg Body Mass Index (BMI) 29.3 Laboratory Tests Past 24 Hrs 12/16/18 12/16/18 12/16/18 06:20 06:20 09:20 WBC 8.9 RBC 4.38 Hgb 13.0 Hct 39.6 MCV 90.4 MCH 29.7 MCHC 32.8 RDW 13.0 RDW Differential 43.0 Plt Count 246 MPV 12.2 H Immature Gran % (Auto) 0.200 Neut % (Auto) 40.8 L Lymph % (Auto) 45.8 H [place] % (Auto) 5.9 Eos % (Auto) 7.0 H Baso % (Auto) 0.3 Absolute Neuts (auto) 3.6 Absolute Lymphs (auto) 4.06 Total Counted Not Reportable Sodium 142 Potassium 3.8 Chloride 109 H Carbon Dioxide 28.0 Anion Gap 5 BUN 11 Creatinine 0.84 Estim Creat Clear Calc 72.51 Est GFR (MDRD) Af Amer 91 Est GFR (MDRD) Non-Af 75 BUN/Creatinine Ratio 13.1 Glucose 109 H Calcium 8.9 Urine Color Yellow Urine Clarity Sl. Cloudy Urine pH 5.0 Ur Specific [place] 1.025 Urine Protein 15 H Urine Glucose (UA) Normal Urine Ketones Negative Urine Occult Blood 150 H Urine Nitrite Negative Urine Bilirubin Negative Urine Urobilinogen Normal Ur Leukocyte Esterase 25 H Urine RBC 10-25 SEEN Urine WBC 0-5 SEEN Ur Squamous Epith Cells 0-5 SEEN Calcium Oxalate Crystal 2+ Urine Bacteria 0 SEEN Urine Mucus 1+ Assessment/Plan All Active Problems Irregular menstrual cycle (Acute) 53 yo female with severe pain with right ureteral calculi plan to take to surgery today for ureteorscopy, basket, laser stone balloon dilation and stent.
--- NOTE | 2018-12-16 14:31 | HP.PCM_ITS ---
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 Denies: Nausea, Vomiting Genitourinary: Denies: Dysuria Musculoskeletal: Denies: Joint Pain, Joint Tenderness Skin: Denies: Rash, Wounds Neurological: Denies: Numbness, Tingling, Focal weakness Psychiatric: Denies: Anxiety, Depression, Homicidal Ideations, Suicidal Ideations Hematologic/ Lymphatic: Denies: Easy Bruising, Easy Bleeding VTE Information - Inpt Only VTE Present on Admission: No VTE Mechan Device Prophylaxis: SCD's - Physical Exam General: Alert, Oriented x3, Cooperative HEENT: Atraumatic, PERRLA, EOMI, Normocephalic Neck: Supple, No JVD, Negative Carotid Bruits Lungs: Clear to auscultation, Normal air movement Cardiovascular: Regular rate, No murmurs Abdomen: Bowel Sounds Present, Soft, Non Tender Extremities: No edema, Capillary Refill Less than 3 Seconds Skin: No rashes, No breakdown Musculoskeletal: No Tenderness to Palpation of Joints or Extremities Neurological: Cranial nerves II-XII grossly intact Psych/Mental Status: Normal Affect, Appropriate Vital Signs Temp Pulse Resp BP Pulse Ox 97.7 F L 70 18 128/77 H 96 12/16/18 08:36 12/16/18 08:59 12/16/18 08:36 12/16/18 08:36 12/16/18 08:36 Oxygen Delivery Method Room Air Weight: 82.5 kg Body Mass Index (BMI) 29.3 Laboratory Tests Past 24 Hrs 12/16/18 12/16/18 12/16/18 06:20 06:20 09:20 WBC 8.9 RBC 4.38 Hgb 13.0 Hct 39.6 MCV 90.4 MCH 29.7 MCHC 32.8 RDW 13.0 RDW Differential 43.0 Plt Count 246 MPV 12.2 H Immature Gran % (Auto) 0.200 Neut % (Auto) 40.8 L Lymph % (Auto) 45.8 H [place] % (Auto) 5.9 Eos % (Auto) 7.0 H Baso % (Auto) 0.3 Absolute Neuts (auto) 3.6 Absolute Lymphs (auto) 4.06 Total Counted Not Reportable Sodium 142 Potassium 3.8 Chloride 109 H Carbon Dioxide 28.0 Anion Gap 5 BUN 11 Creatinine 0.84 Estim Creat Clear Calc 72.51 Est GFR (MDRD) Af Amer 91 Est GFR (MDRD) Non-Af 75 BUN/Creatinine Ratio 13.1 Glucose 109 H Calcium 8.9 Urine Color Yellow Urine Clarity Sl. Cloudy Urine pH 5.0 Ur Specific [place] 1.025 Urine Protein 15 H Urine Glucose (UA) Normal Urine Ketones Negative Urine Occult Blood 150 H Urine Nitrite Negative Urine Bilirubin Negative Urine Urobilinogen Normal Ur Leukocyte Esterase 25 H Urine RBC 10-25 SEEN Urine WBC 0-5 SEEN Ur Squamous Epith Cells 0-5 SEEN Calcium Oxalate Crystal 2+ Urine Bacteria 0 SEEN Urine Mucus 1+ Assessment/Plan All Active Problems Irregular menstrual cycle (Acute) 53 yo female with severe pain with right ureteral calculi plan to take to surgery today for ureteorscopy, basket, laser stone balloon dilation and stent.
[2018-12-16] MEDS: Ciprofloxacin 400 MG/200 ML BAG 200 MG IV (14:35)
--- NOTE | 2018-12-16 15:13 | DCINST_ITS ---
Discharge Diet: Light diet - advance as tolerated Discharge Activity: Return to Normal Activity, May not drive while taking narcotic pain medications. Call your doctor if your incision/area has: Continuous Slow Oozing, Sudden Increased Bleeding, Increased Pain/ Swelling, Increased Redness, Foul Smelling Discharge, Swelling at the incision site Call your doctor if you observe: Fever of 101 or Higher, Uncontrolled pain Suture Line Care: Avoid Pulling/Pushing, Avoid Pinching/Bending Instructions: Treating Kidney Stones: Ureteroscopic Stone Removal Allergies/Adverse Reactions: Allergies Penicillins Allergy (Verified 12/16/18 14:22) Shortness of breath Medications to take at Discharge Ciprofloxacin [Cipro] 500 mg PO BID #6 tab 12/16/18 Hydrocodone Bitart/Apap 5-325 [[place] 5MG-325MG] 1 tab PO Q4H PRN PRN 5 Days #14 tab 12/16/18 Levothyroxine Sodium [Synthroid] 25 mg PO DAILY 12/16/18 The following prescriptions were given: Hydrocodone Bitart/Apap 5-325 [[place] 5MG-325MG] 1 tab PO Q4H PRN PRN 5 Days #14 tab PRN Reason: Pain Ciprofloxacin [Cipro] 500 mg PO BID #6 tab Primary Care Physician: Shayla Jenkins NP-C [Primary Care Provider] - Test Results: Test results from this visit will be discussed in further detail at your follow- up appointment, if applicable. Please Follow Up With: Jason Barboza MD When: please call to make an appointment.
--- NOTE | 2018-12-16 15:14 | PCM.OPRPT ---
Report of Operation Date of Procedure: 12/16/18 Pre-Operative Diagnosis: Right distal ureteral calculi with renal colic Post-Operative Diagnosis: The same Surgery/Procedure Performed:: Cystoscopy, balloon dilation of the right ureter, right retrograde pyelogram interpretation of fluoroscopic images, right ureteroscopy extraction of stone, right stent placement Description of Surgical Findings:: 53-year-old female taken back to the operating with smooth induction of general anesthesia she was placed in dorsolithotomy position the urethra vaginal area prepped and draped in usual sterile fashion went in the bladder with a 21 [place] rigid cystourethroscope identified the right ureteral orifice cannulated this with a wire and then over the wire balloon dilated the distal ureter immediately this had a joseline amount of concentrated urine coming from the right kidney. After balloon dilated with a 12fr 10cm balloon dilator, the ureter went up with the 8fr ureteroscope work my way of the ureteroscope work my way down and I was working way down the stone was extracted and came to the bladder I then used a regular cystoscope and drained the bladder and exclude to remove the stone from the bladder. I went back up with a flexible ureteroscope and performed a retrograde pyelogram to see the contrast going up to the kidney and then after interpreting these images then I advanced a wire up into the kidney and over the wire I placed the stent 4.5 [place] by 26 cm stent at the string of the stent. Drain the bladder patient anesthetic reversed the specimen stone was handed off as a specimen. Take back to PACU good condition went back to the family. Type of Anesthesia:: General Drains: stent right. - Admit VTE Documentation VTE Present on Admission: No VTE Mechan Device Prophylaxis: SCD's
[2018-12-30 20:06] LABS: Ca Oxalate, Monohydrate 87 % (.); Calcium Phosphate 10 % (.)
== END 2018-12-16 18:08 | disposition home health service (06) ==
LOC: ED 07:05 → MS3 11:48
PROVIDERS: Admitting Provider Urology; Emergency Provider Emergency Medicine; Family Provider Nurse Practitioner; PCP Nurse Practitioner; Visit Provider Urology
PROC: (CPT 52332; principal; 2018-12-16 16:35)
DX: N13.2 Hydronephrosis with renal and ureteral calculous obstruction (principal)
CPT/HCPCS: 00918; 52332; 52352; 74176; 76000; 80048; 81001; 82360; 85025; 88300; 96361; 96374; 96375; 96376; 99218; 99285; J7030; A4216; C1769; G0378; J0744; J2405

== ENCOUNTER → 2019-08-10 13:19 | Outpatient (CLI) | payer OTHER, SELFPAY ==
[2018-12-16 14:14] VITALS: BMI 29.3
--- NOTE | 2019-08-10 13:25 | RAD_ITS ---
STUDY: X-RAY - ABDOMEN/PELVIS REASON FOR EXAM: Female, 54 years old. Kidney stone TECHNIQUE: Single AP view of the abdomen / pelvis. COMPARISON: 12/16/2018 FINDINGS: Excluded lung bases. Mild fecal residue of the right colon. No dilated loops of small bowel. There is no demonstrated free abdominal air. 4 mm calcification projects over the inferior left kidney, similar since prior CT. There are calcified phleboliths in the pelvis. There is mild levoscoliosis of the lumbar spine. RAD/Abdomen Single View IMPRESSION: Inferior left renal calculus, stable. Electronically Signed: Prem Lehman MD ([place]) at 8:12 EST , Service support ,
== END ==
PROVIDERS: Family Provider Nurse Practitioner; PCP Nurse Practitioner; Referring Provider Urology; Visit Provider Urology
DX: N20.0 Calculus of kidney (principal)
CPT/HCPCS: 74018

== ENCOUNTER 2020-10-17 07:57 | Outpatient (RCR) | payer OTHER, SELFPAY ==
[2018-12-16 14:14] VITALS: BMI 29.3
[2020-10-17] MEDS: COVID-19 VACC, MRNA(PFIZER)/PF 30 MCG/0.3 ML SYRINGE IM (18:48)
== END 2021-01-09 23:59 ==
LOC: IMMUN 07:57
PROVIDERS: PCP Nurse Practitioner; Visit Provider Family Medicine
DX: Z23 Encounter for immunization (principal)
CPT/HCPCS: 0001A; 91300

== ENCOUNTER → 2021-01-09 15:49 | Outpatient (CLI) | payer OTHER, SELFPAY ==
[2018-12-16 14:14] VITALS: BMI 29.3
--- NOTE | 2021-01-09 15:51 | BI_ITS ---
MAMMOGRAPHY - BILATERAL SCREENING REASON FOR EXAM: Female, 55 years old. Routine annual screening examination. PERTINENT HISTORY: Non-contributory. TECHNIQUE: Digital bilateral breast elba (3D mammographic acquisition) in the CC and MLO projections. 2-D mediolateral oblique (MLO) and craniocaudad (CC) views of both breasts were obtained. CAD: Full Field Digital Mammography with Computer Added Detection was performed. COMPARISON: Comparison is made with prior study dated 03/13/2018 and 08/20/2016. FINDINGS: Breast Composition: The breasts are heterogeneously dense, which may obscure small masses. There are no dominant masses or suspicious calcifications. No other significant abnormalities are identified. There has been no significant change since the prior study. BI/SCRN MAMM (CAD)W/ELBA BILAT IMPRESSION: Stable bilateral screening mammogram. Yearly follow-up mammogram recommended. (A) ASSESSMENT CATEGORY: BIRADS Category 1: Negative. A letter regarding these results will be sent to the patient by the facility within 30 days. Approximately 10% of breast cancers are not detected by mammography. A normal mammogram should not delay biopsy of a clinically suspicious abnormality. [id number] Electronically Signed: Jamal Jerome MD at 8:49 EDT , Service support ,
== END ==
PROVIDERS: PCP Nurse Practitioner; Referring Provider Obstetrics & Gynecology; Visit Provider Obstetrics & Gynecology
DX: Z12.31 Encounter for screening mammogram for malignant neoplasm of breast (principal)
CPT/HCPCS: 77063; 77067

== ENCOUNTER → 2021-01-30 10:56 | Outpatient (CLI) | payer OTHER, SELFPAY ==
[2018-12-16 14:14] VITALS: BMI 29.3
--- NOTE | 2021-01-30 10:58 | RAD_ITS ---
STUDY: X-RAY - ABDOMEN/PELVIS REASON FOR EXAM: Female, 55 years old. CALCULUS OF KIDNEY TECHNIQUE: Two AP supine views of the abdomen and pelvis. COMPARISON: 08/10/2019. CT abdomen pelvis 12/16/2018. FINDINGS: No significant change of left inferior renal calculus. There are bilateral phleboliths in the pelvis. There is a moderate amount of colonic fecal material. There is no demonstrated free abdominal air on supine image. Normal soft tissue structures. Stable mild levoscoliosis. RAD/Abdomen Single View IMPRESSION: Stable left inferior renal pole calculus. There is moderate amount of fecal material. There is no obstruction. Electronically Signed: Meghann Abrams MD at 23:03 EDT , Service support ,
== END ==
PROVIDERS: PCP Nurse Practitioner; Referring Provider Urology; Visit Provider Urology
DX: N20.0 Calculus of kidney (principal)
CPT/HCPCS: 74018

== ENCOUNTER → 2021-02-02 | Outpatient (CLI) | payer OTHER, SELFPAY ==
[2018-12-16 14:14] VITALS: BMI 29.3
[2021-02-07 16:13] LABS: HPV APTIMA, High Risk Negative (Negative)
== END | disposition home or self-care (01) ==
LOC: LABSPEC 11:26
PROVIDERS: PCP Nurse Practitioner; Visit Provider Obstetrics & Gynecology
DX: Z12.4 Encounter for screening for malignant neoplasm of cervix (principal)
CPT/HCPCS: 87624; 88175; G0145

== ENCOUNTER → 2021-02-14 10:23 | Outpatient (CLI) | payer OTHER, SELFPAY ==
[2018-12-16 14:14] VITALS: BMI 29.3
--- NOTE | 2021-02-14 10:37 | EKG12_ITS ---
Test Reason : PREOP Blood Pressure : / mmHG Vent. Rate : 061 BPM Atrial Rate : 061 BPM P-R Int : 144 ms QRS Dur : 084 ms QT Int : 400 ms P-R-T Axes : 060 029 053 degrees QTc Int : 402 ms Normal sinus rhythm Normal ECG Confirmed by KELLY KABA, DANIEL ([id number]), department editor LAWRENCE ALMANZAR ([id number]) on 02/15/2021 9:06:43 AM Referred By: Jason Barboza Confirmed By:DANIEL MENDOZA MD
[2021-02-14 11:10] LABS: Hematocrit 42.7 % (37-47); Hemoglobin 14.1 g/dL (12.0-15.0); Mean Corpuscular Hgb 30.1 pg (27.0-32.0); Mean Corpuscular Volume 91.2 fL (81-99); Mean Platelet Vol. 12.4 fl (6.2-12.0); Platelet Count 255 K/mm3 (150-450); RBC Distribution Width CV 12.1 % (11.6-14.6); RBC Distribution Width SD 40.5 fl (35.1-43.9); Red Blood Count 4.68 M/mm3 (4.2-5.4); White Blood Count 7.2 K/mm3 (4.4-11.0)
[2021-02-14 11:39] LABS: Anion Gap 4 (5-15); BUN 13 mg/dL (7-18); BUN/Creat Ratio 16.4 RATIO (10-20); Calcium,Total 9.6 mg/dL (8.5-10.1); Chloride 106 mmol/L (98-107); Creatinine, Serum 0.79 mg/dL (0.55-1.02); EST Glomerular Filtration Rate 80 mL/min (>60); Est Glom Filt Rate - Afr Amer 97 mL/min (>60); Glucose 90 mg/dL (74-106); Potassium 4.1 mmol/L (3.5-5.1); Sodium Level 141 mmol/L (136-145)
== END ==
PROVIDERS: PCP Nurse Practitioner; Referring Provider Urology; Visit Provider Urology
DX: Z01.812 Encounter for preprocedural laboratory examination (principal)
CPT/HCPCS: 36415; 80048; 85027; 93005

== ENCOUNTER → 2021-02-28 09:51 | Outpatient (CLI) | payer OTHER, SELFPAY ==
[2018-12-16 14:14] VITALS: BMI 29.3
--- NOTE | 2021-02-28 09:57 | BD_ITS ---
STUDY: DUAL ENERGY X-RAY ABSORPTIOMETRY / DXA REASON FOR EXAM: Female, 55 years old. [id number]. TECHNIQUE: Bone Mineral Density (BMD) measurements of lumbar spine and bilateral hips were obtained. COMPARISON: None. FINDINGS: Lumbar Spine (L1-L4): g/cm2 (1.077) / T-score (0.3) / Z-score (1.4) Findings are suggestive of normal bone density with a low fracture risk. Left Femur Total: g/cm2 (0.963) / T-score (0.2) / Z-score (0.9) Left Femoral Neck: g/cm2 (0.784) / T-score (-0.6) / Z-score (0.5) Right Femur Total: g/cm2 (0.952) / T-score (0.1) / Z-score (0.8) Right Femoral Neck: g/cm2 (0.721) / T-score (-1.2) / Z-score (-0.1) BD/Dexa Bone Density Study IMPRESSION: The patient is considered osteopenic as outlined below according to [place] Organization (WHO) criteria with a low fracture risk Reference Information: The T-score is the number of standard deviations above or below the standard which is normal for young adults at their peak bone mineral density. The World Health Organization (WHO) interprets the T-scores as follows: Above -1 Normal bone density Between -1 and -2.5 Osteopenia Equal to / or below -2.5 Osteoporosis As a practical clinical guideline, osteopenia may be graded as follows: Mild -1 through -1.5 Moderate -1.6 through -2.0 Severe -2.1 through -2.4 The Z-score is the number of standard deviations above or below age-matched controls. A Z-score of less than -1.5 would be considered abnormal. References: 1. NIH Osteoporosis and Related Bone Diseases www osteo.org 2. International Society for Clinical Densitometry www iscd.org 3. National Osteoporosis Foundation www nof.org Electronically Signed: Jamal Jerome MD at 20:36 EDT , Service support ,
== END ==
PROVIDERS: PCP Nurse Practitioner; Referring Provider Obstetrics & Gynecology; Visit Provider Obstetrics & Gynecology
DX: N95.1 Menopausal and female climacteric states (principal); Z82.62 Family history of osteoporosis
CPT/HCPCS: 77080

== ENCOUNTER 2021-03-02 12:42 | Emergency (ER) | payer OTHER, SELFPAY ==
[2018-12-16 14:14] VITALS: BMI 29.3
[2021-03-02 12:43] VITALS: BP 176/79; PULSE 76; RESP 24; TEMP 36.1; O2SAT 99; BMI 29.0
[2021-03-02 13:05] LABS: Absolute Lymphocyte Count 1.79 X10^3/uL (0.83-4.51); Basophil# 0.04 X10^3/uL; Basophil% 0.3 % (0-1); Eosinophil# 0.01 X10^3/uL; Eosinophils% 0.1 % (0-5); Hematocrit 42.1 % (37-47); Hemoglobin 13.8 g/dL (12.0-15.0); Lymphocyte # 1.79 X10^3/ul (0.83-4.51); Lymphocyte % 13.7 % (19-41); Mean Corp Hgb Conc 32.8 g/dL (32-36); Mean Corpuscular Hgb 29.9 pg (27.0-32.0); Mean Corpuscular Volume 91.1 fL (81-99); Monocyte# 0.11 X10^3/uL; Monocyte% 0.8 % (0-10); NRBC Flagged by Analyzer 0 % (0-5); Neutrophil # 11.03 X10^3/uL (2.7-7.7); Neutrophil % 84.3 % (47-70); Platelet Count 252 K/mm3 (150-450); RBC Distribution Width CV 12.1 % (11.6-14.6); RBC Distribution Width SD 40.6 fl (35.1-43.9); Red Blood Count 4.62 M/mm3 (4.2-5.4); White Blood Count 13.1 K/mm3 (4.4-11.0)
[2021-03-02] MEDS: Ondansetron 4 MG/2 ML Vial IV (13:10)
[2021-03-02] MEDS: 0.9% Normal Saline 1,000 ML 200 ML IV (13:10)
[2021-03-02] MEDS: Ketorolac 30 MG/ML Syringe IV (13:10)
[2021-03-02] MEDS: HYDROmorphone 0.5 MG/0.5 ML SYRINGE IV ×2 (13:11→13:44)
[2021-03-02 13:16] LABS: Anion Gap 6 (5-15); BUN 12 mg/dL (7-18); BUN/Creat Ratio 13.4 RATIO (10-20); Calcium,Total 9.5 mg/dL (8.5-10.1); Chloride 106 mmol/L (98-107); EST Glomerular Filtration Rate 69 mL/min (>60); Est Glom Filt Rate - Afr Amer 84 mL/min (>60); Estimated Creatinine Clearance 66.12 ml/min; Glucose 173 mg/dL (74-106); Potassium 3.8 mmol/L (3.5-5.1); Sodium Level 139 mmol/L (136-145)
[2021-03-02 14:22] VITALS: BP 161/81; RESP 18; O2SAT 96
[2021-03-02 15:17] VITALS: BP 173/82; PULSE 89; RESP 18; O2SAT 95
[2021-03-02] MEDS: Morphine 4 MG/ML Syringe IV (15:50)
--- NOTE | 2021-03-02 16:23 | EDS_ITS ---
HPI History of Present Illness Chief Complaint: Nausea/Vomiting Informant: patient Onset/Context/Timing Onset: Today Current Severity: Severe Maximum Severity: Severe Narrative Narrative: Patient present secondary to severe left flank pain. She had a lithotripsy performed this morning at the outpatient surgery center. She states she felt well when she left the facility. After arriving home pain started to increase. She developed nausea and vomiting and has been unable to keep her pain meds down. She states she has had similar reactions with anesthesia in the past. PFSH PFSH Medical History Hypothyroidism Kidney stones Home Medications ciprofloxacin HCl 500 mg PO BID #6 tab 12/16/18 [Rx Last Taken Unknown] levothyroxine [Synthroid] 25 mg PO DAILY 12/16/18 [History Last Taken 12/15/18] ondansetron 4 mg PO Q8H PRN #14 tab 03/02/21 [Rx Last Taken Unknown] oxycodone-acetaminophen 03/02/21 [History Last Taken Unknown] Allergy/AdvReac Type Severity Reaction Status Date / Time Penicillins Allergy Shortness Verified 03/02/21 12:45 of breath Social History Smoking Status: Never smoker ROS ROS ED Constitutional Constitutional ED: Denies chills or fever(s) Eyes Eyes: Denies change in vision ENT ENT ED: Denies sore throat Cardiovascular Cardiovascular: Denies chest pain Respiratory/Chest Respiratory/Chest: Denies cough or dyspnea Gastrointestinal Gastrointestinal: Reports abdominal pain, nausea and vomiting; Denies diarrhea Genitourinary Genitourinary ED: Denies dysuria Musculoskeletal Musculoskeletal: Reports back pain Integumentary Denies rash Neurologic Neurologic: Denies headache(s) or weakness Psychiatric Psychiatric: Denies anxiety or depression Endocrine Endocrinology: Denies polydipsia or polyuria Allergic/Immunologic Allergic/Immunologic ED: Denies urticaria EXAM Physical Exam Const Vital Signs: 03/02/21 12:43 03/02/21 14:22 03/02/21 15:17 Temperature 97 F L Temperature Source Temporal Pulse Rate 76 89 Respiratory Rate 24 H 18 18 Blood Pressure 176/79 H 161/81 H 173/82 H Blood Pressure Mean 111 107 112 Pulse Ox 99 96 95 Oxygen Delivery Method Room Air Room Air Room Air Positive well nourished and well developed General Appearance ED: well developed HEENT Reports normocephalic and head/scalp atraumatic Eyes PERRL and EOMs intact bilaterally Neck supple Chest Wall inspection of chest normal and palpation of chest normal Resp normal respiratory effort and clear to auscultation bilaterally Cardio regular rate and regular rhythm GI non-tender Auscultation: hypoactive bowel sounds Palpation: soft Back/Spine no CVA tenderness Extremity normal to inspection Neuro oriented x3 Sensorium / Orientation: alert Psych Mood & Affect: anxious and tearful Skin no rashes or lesions noted MDM MDM MDM Narrative Medical decision making narrative: Patient was given Dilaudid, Toradol, Zofran on arrival. Lab Data Labs: Laboratory Results - last 24 hr 03/02/21 03/02/21 12:55 12:55 WBC 13.1 H RBC 4.62 Hgb 13.8 Hct 42.1 MCV 91.1 MCH 29.9 MCHC 32.8 RDW Std Deviation 40.6 RDW Coeff of [place] 12.1 Plt Count 252 MPV 12.0 Immature Gran % (Auto) 0.800 Neut % (Auto) 84.3 H Lymph % (Auto) 13.7 L [place] % (Auto) 0.8 Eos % (Auto) 0.1 Baso % (Auto) 0.3 Absolute Neuts (auto) 11.0 H Absolute Lymphs (auto) 1.79 Nucleated RBC % 0 Sodium 139 Potassium 3.8 Chloride 106 Carbon Dioxide 27.0 Anion Gap 6 BUN 12 Creatinine 0.90 Estim Creat Clear Calc 66.12 Est GFR (MDRD) Af Amer 84 Est GFR (MDRD) Non-Af 69 BUN/Creatinine Ratio 13.4 Glucose 173 H Calcium 9.5 Treatment and Re-Evaluation Comments:: Patient did require an additional dose of Dilaudid and morphine for pain control. At this time she is sitting up in bed smiling. She is able to tolerate p.o. She will be given a prescription for Zofran which I advised her to take 10 to 15 minutes before taking any pain medication. I also advised her to eat with the pain medication. Discharge Plan Triage Chief Complaint: Nausea/Vomiting ED Provider: Nayla Schaefer Dx/Rx/DC Orders Clinical Impression: Post-op pain, Renal colic Instructions: ED Kidney Stone w/ Colic Prescriptions: New ondansetron 4 mg tablet,disintegrating 4 mg PO Q8H PRN (Reason: nausea and vomiting) Qty: 14 RF: 0 No Action levothyroxine [Synthroid] 25 tablet 25 mg PO DAILY RF: 0 ciprofloxacin HCl 500 MG tablet 500 mg PO BID Qty: 6 RF: 0 oxycodone-acetaminophen 5-325 mg tablet RF: 0 Primary Care Provider: Shayla Jenkins NP Referrals: Jason Barboza MD [STAFF PHYSICIAN] - 3-5 Days if not improving Shayla Jenkins NP, PUBLIC HEALTH NUTRITIONIST-C [Primary Care Provider] - Disposition Disposition: Home, Self Care
[2021-03-02] MEDS: Ondansetron ODT 4 MG Tablet PO (17:35)
[2021-03-02 17:36] VITALS: BP 159/83; PULSE 76; RESP 18; O2SAT 94
== END 2021-03-02 17:37 | disposition home or self-care (01) ==
PROVIDERS: Emergency Provider Emergency Medicine; PCP Nurse Practitioner
DX: G89.18 Other acute postprocedural pain (principal); N23 Unspecified renal colic; E03.9 Hypothyroidism, unspecified; Z79.899 Other long term (current) drug therapy
CPT/HCPCS: 80048; 85025; 96361; 96374; 96375; 96376; 99283; J7030; A4216; J2405

== ENCOUNTER → 2021-03-22 15:22 | Outpatient (CLI) | payer OTHER, SELFPAY ==
--- NOTE | 2021-03-22 15:27 | RAD_ITS ---
STUDY: X-RAY - ABDOMEN/PELVIS REASON FOR EXAM: Female, 55 years old. KIDNEY STONE TECHNIQUE: AP abdomen radiographs COMPARISON: 01/30/2021 FINDINGS: Normal visualized lung bases. Nonobstructive bowel gas pattern. There is no demonstrated free abdominal air. The visualized liver, spleen and kidneys are grossly normal in size and morphology. Left renal calculus no longer demonstrated. No finding of distal urinary radiopaque calculus. There are calcified phleboliths in the pelvis. Normal visualized osseous structures. RAD/Abdomen Single View IMPRESSION: Left renal calculus no longer demonstrated. Electronically Signed: Eagle Chang MD at 7:40 EDT Tel , Service support ,
== END ==
PROVIDERS: PCP Nurse Practitioner; Referring Provider Urology; Visit Provider Urology
DX: N20.0 Calculus of kidney (principal)
CPT/HCPCS: 74018

== ENCOUNTER 2021-11-16 09:19 | Outpatient (CLI) | payer OTHER, SELFPAY ==
[2021-11-16 11:49] LABS: Hematocrit 40.9 % (37-47); Hemoglobin 13.5 g/dL (12.0-15.0); Mean Corpuscular Hgb 29.5 pg (27.0-32.0); Mean Corpuscular Volume 89.3 fL (81-99); Mean Platelet Vol. 12.1 fl (6.2-12.0); Platelet Count 233 K/mm3 (150-450); RBC Distribution Width CV 12.1 % (11.6-14.6); RBC Distribution Width SD 39.8 fl (35.1-43.9); Red Blood Count 4.58 M/mm3 (4.2-5.4); White Blood Count 6.4 K/mm3 (4.4-11.0)
[2021-11-16 12:15] LABS: AST(SGOT) 58 U/L (15-37); Alanine Aminotransfer ALT/SGPT 94 U/L (13-56); Albumin, Serum 3.7 g/dL (3.2-5.0); Alkaline Phosphatase 73 U/L (45-117); Anion Gap 5 (5-15); BUN 12 mg/dL (7-18); BUN/Creat Ratio 14.2 RATIO (10-20); Calcium,Total 9.5 mg/dL (8.5-10.1); Chloride 106 mmol/L (98-107); Creatinine, Serum 0.85 mg/dL (0.55-1.02); EST Glomerular Filtration Rate 74 mL/min (>60); Est Glom Filt Rate - Afr Amer 89 mL/min (>60); Globulin 3.8 g/dL (2.2-4.2); Glucose 99 mg/dL (74-106); Potassium 4.1 mmol/L (3.5-5.1); Protein, Total 7.5 g/dL (6.4-8.2); Sodium Level 139 mmol/L (136-145); Thyroid Stim Hormone (TSH) 3.92 uIU/mL (0.358-3.74)
== END 2021-11-16 23:59 | disposition home or self-care (01) ==
LOC: MTLAB 09:20
PROVIDERS: PCP Nurse Practitioner; Referring Provider Nurse Practitioner; Visit Provider Nurse Practitioner
DX: E03.9 Hypothyroidism, unspecified (principal)
CPT/HCPCS: 36415; 80053; 84443; 85027

== ENCOUNTER → 2021-11-23 | Outpatient (CLI) | payer OTHER, SELFPAY ==
--- NOTE | 2021-11-23 17:10 | MRI_ITS ---
STUDY: MRI BRAIN WITH AND WITHOUT CONTRAST (ATTENTION INTERNAL AUDITORY CANALS - I.A.C.''s) REASON FOR EXAM: Female, 56 years old. Right tinnitus. TECHNIQUE: Standardized multiplanar fat and water weighted pulse sequences were obtained. 17 mL IV Dotarem was administered for the contrast portion of the examination. COMPARISON: None. FINDINGS: Normal bilateral temporal bones. Normal bilateral internal auditory canals. There is no demonstrated intracanalicular or cisternal vestibular schwannoma (acoustic neuroma). There is no enhancement of the bilateral VIIth or VIIIth cranial nerves. Normal bilateral cochlea, vestibules and semicircular canals. Normal size of the ventricles and extra-axial spaces for the patient''s age. Nonspecific T2 FLAIR hyperintensity focus in the subcortical white matter of the left middle frontal gyrus and small nonspecific T2 FLAIR hyperintensity foci in the subcortical white matter of both frontal lobes. No mass effects and no midline shift. Normal bilateral basal ganglia. Normal thalami. Normal flow voids within the major intracranial circulation suggesting patency by spin echo criteria. Normal venous enhancement. There is no enhancing intra-axial or extra-axial abnormality. There is no extra-axial fluid accumulation. Normal sella turcica, pituitary gland, infundibular stalk, optic chiasm and hypothalamus. Normal tectal plate and pineal gland. Normal midbrain, amira and medulla. Normal cerebellum. Normal basal cisterns. No demonstrated orbital abnormality, within the constraints of a routine brain study. Normal visualized paranasal sinuses. Normal calvarium and skull base. Normal visualized soft tissue structures. Normal visualized upper cervical spine. MRI/Brain W/WO Contrast IMPRESSION: 1. Normal unenhanced and enhanced MRI of the bilateral internal auditory canals (I.A.C''s). 2. Nonspecific T2 FLAIR hyperintensity foci in the subcortical white matter of the left middle frontal gyrus and in both central lobes. Possibilities include migraine related changes, reversible cerebral vasoconstrictive syndrome, microvascular disease and vasculitis. Electronically Signed: Ajit Gramajo MD at 10:00 EDT ,
== END | disposition home or self-care (01) ==
PROVIDERS: PCP Nurse Practitioner; Visit Provider Otolaryngology
DX: H93.11 Tinnitus, right ear (principal)
CPT/HCPCS: 70553; A9575